=== PATIENT | male | born 1940 | race Caucasian/White ===

== ENCOUNTER → 2018-12-07 | Outpatient (CLI) | payer MEDICARE ==
[~2018-12-07] MED LIST: AMLO5; ATOR20; Mupirocin22 GM; Omeprazole20 M1; RIFA300; TRAZ50; Xalatan2.5 ML
[2018-12-11 13:51] LABS: Stool Occult Bld Immuno 1 Negative (NEGATIVE)
== END | disposition home or self-care (01) ==
LOC: LAB SRC 10:30 → LAB SHORT 10:30 → EDSTATUS 12-05 17:00 → LAB FUT 12-05 17:00
PROVIDERS: Internal Medicine
DX: Z12.11 Encounter for screening for malignant neoplasm of colon (principal)
CPT/HCPCS: G0328

== ENCOUNTER → 2020-02-12 | Outpatient (CLI) | payer MEDICARE ==
[2020-02-12 15:43] LABS: BASOPHILS ABSOLUTE AUTO 0.04 K/mm3 (0.00-0.23); BASOPHILS PERCENT AUTO 0 % (0-2); EOSINOPHILS PERCENT AUTO 2 % (0-6); Hematocrit 46.3 % (37.0-53.0); Hemoglobin 15.3 g/dL (13.5-17.5); IMMATURE GRAN PERCENT AUTO 1 % (0-1); LYMPHOCYTES ABSOLUTE AUTO 2.06 K/mm3 (0.84-5.20); LYMPHOCYTES PERCENT AUTO 19 % (21-46); MONOCYTES ABSOLUTE AUTO 0.81 K/mm3 (0.16-1.47); MONOCYTES PERCENT AUTO 7 % (4-13); Mean Corpuscular HGB 30.7 pg (26.0-34.0); Mean Corpuscular Volume 93 fL (80-100); Mean Platelet Volume 10.5 fL (9.1-12.4); NEUTROPHILS ABSOLUTE AUTO 7.79 K/mm3 (1.96-9.15); NEUTROPHILS PERCENT AUTO 71 % (41-73); Platelet Count 366 K/mm3 (150-400); RDW Coefficient Variation 13.2 % (11.7-14.2); RDW Standard Deviation 44.9 fL (35.1-46.3); Red Blood Cell Count 4.99 M/mm3 (4.30-5.90)
[2020-02-12 15:51] LABS: Alanine Aminotransfer (ALT/SGP 16 U/L (12-78); Albumin, Blood 3.5 g/dL (3.4-5.0); Albumin/Globulin Ratio 0.9 (0.8-1.8); Alk Phos 76 U/L (40-126); Anion Gap 3 mmol/L (6-16); Aspartate Aminotrans (AST/SGOT 15 U/L (12-37); Bilirubin, Total 0.8 mg/dL (0.1-1.0); Blood Urea Nitrogen 16 mg/dL (8-24); Bun/Creatinine Ratio 17.6 (12.0-20.0); CO2, Blood 33 mmol/L (21-32); Calcium, Blood 8.6 mg/dL (8.5-10.1); Chloride, Blood 102 mmol/L (98-108); Creatinine, Blood 0.91 mg/dL (0.60-1.20); Glomerular Filtration Rate >60 (60-); Glucose, Blood 76 mg/dL (70-99); Potassium, Blood 4.4 mmol/L (3.5-5.5); Sodium, Blood 138 mmol/L (136-145); Total Protein, Blood 7.5 g/dL (6.4-8.2)
== END ==
LOC: LAB SHORT 15:31 → LAB EV 15:31
PROVIDERS: Physician Assistant Medical
DX: R41.0 Disorientation, unspecified (principal)
CPT/HCPCS: 36415; 80053; 85025

== ENCOUNTER → 2020-02-13 | Outpatient (CLI) | payer MEDICARE | LOC: LAB EV 13:30 → LAB SHORT 13:30 | DX: R41.0 Disorientation, unspecified (principal) | CPT/HCPCS: 87086 ==

== ENCOUNTER 2022-09-12 10:52 | Observation (INO) | payer MEDICARE ==
[~2022-09-12] VITALS: Ht 172.7 cm; Wt 65.8 kg
[2022-09-12 14:11] LABS: BASOPHILS ABSOLUTE AUTO 0.02 K/mm3 (0.00-0.23); BASOPHILS PERCENT AUTO 0 % (0-2); EOSINOPHILS ABSOLUTE AUTO 0.14 K/mm3 (0.00-0.68); EOSINOPHILS PERCENT AUTO 2 % (0-6); Hemoglobin 14.6 g/dL (13.5-17.5); IMMATURE GRAN ABSOLUTE AUTO 0.05 K/mm3 (0.00-0.10); IMMATURE GRAN PERCENT AUTO 1 % (0-1); LYMPHOCYTES ABSOLUTE AUTO 1.72 K/mm3 (0.84-5.20); LYMPHOCYTES PERCENT AUTO 18 % (21-46); MONOCYTES ABSOLUTE AUTO 0.68 K/mm3 (0.16-1.47); MONOCYTES PERCENT AUTO 7 % (4-13); Mean Corpuscular HGB 30.7 pg (26.0-34.0); Mean Corpuscular Volume 90 fL (80-100); Mean Platelet Volume 10.2 fL (9.1-12.4); NEUTROPHILS ABSOLUTE AUTO 6.78 K/mm3 (1.96-9.15); NEUTROPHILS PERCENT AUTO 72 % (41-73); Platelet Count 232 K/mm3 (150-400); RDW Coefficient Variation 13.3 % (11.7-14.2); RDW Standard Deviation 44.1 fL (35.1-46.3); Red Blood Cell Count 4.76 M/mm3 (4.30-5.90); White Blood Cell Count 9.39 K/mm3 (4.00-11.30)
[2022-09-12 14:41] LABS: Albumin, Blood 3.5 g/dL (3.4-5.0); Bilirubin, Total 1.2 mg/dL (0.1-1.0); Bun/Creatinine Ratio 18.7 (12.0-20.0); Calcium, Blood 8.9 mg/dL (8.5-10.1); Creatinine, Blood 0.96 mg/dL (0.60-1.20); Globulin, Blood 3.6 g/dL (2.2-4.0); Potassium, Blood 4.1 mmol/L (3.5-5.5); Total Protein, Blood 7.1 g/dL (6.4-8.2)
--- NOTE | 2022-09-13 16:19 | NUR ---
OBTAINED PT FROM ER. PT SLEEPING GRASPING AT AIR WITH HANDS. PT ATTEMPTING TO GET OUT OF BED BUT RELAXES ONCE ASKED A FEW TIMES. NS INFUSING. ON RA. BLACKBERRY SCRATCHS ON LEGS, OLD WOUNDS. SIDE RAILS UP X3 FOR SAFETY, BED ALARM ON, AND CALL LIGHT IN REACH.
--- NOTE | 2022-09-14 03:15 | NUR ---
CASSEROLE PREPARER SUMMARY BP ELEVATED. ASYMPTOMATIC. IVF INFUSING ORDERED, TOLERATED MEDS CRUSHED IN APPLESAUCE. TENISHA AND [address], CHECKS WNL. CONTINUES TO BE DANGER AND HIGH FALL RISK. DOES NOT REDIRECT, EASILY AGITATED. INCONT OF URINE X 1. LINEN CHANGED. 1:1 AT BEDSIDE. CALL LIGHT IN REACH. WILL CONTINUE TO MONITOR.
--- NOTE | 2022-09-14 16:56 | NUR ---
SHIFT SUMMARY- PT VSS. PT AWARE OF ONLY SELF. PT SITS UP IN BED AND LAYS DOWN, GRASPING AT OJBECTS IN AIR. MUMBLING EXCESSIVELY, STATING HE "NEEDS TO GET OUTTA HERE" MEDICATED PER DR ORDER, SEE EMAR. 1 UNMEASURED VOID. IV LEAKING, PULLED. PT HAS ISSUES EATING. TONGUES FOOD ABNORMALLY. PT ATE SOME BITES THEN WOUND LOSE INTEREST. NO C/O OF PAIN, NO WINCHING NOTICED. CALL LIGHT IN REACH, BED ALARN, SIDE AILS UP FOR SAFETY.
--- NOTE | 2022-09-15 04:17 | NUR ---
SHIFT SUMMARY PT AOX1, EASILY AGITATED, CONFUSED AND DISORIENTED. PT TRIES TO COMMUNICATE BUT SPEECH IS GARBLED. PT IN 4 POINT RESTRAINTS FOR SAFETY, HIGH FALL RISK. 0.45 NS INFUSING AT 150 ORDERED. PT NEEDED TO BE CONVINCED TO TAKE EVENING MEDS CRUSHED IN APPLESAUCE BUT HE EVENTUALLY DID. VSS, NO ACUTE EVENTS.
--- NOTE | 2022-09-15 08:14 | NUR ---
pt laying in bed with eyes closed, snoring, is confused when wakes, lungs are clear dim in bases, resp even and unlabored, no cough noted, on r/a, hrr, no edema noted, ppp+1, cap refill <3sec, vs stable, afebrile, iv to lac, site is clear and patent, bt x4, abd flat soft nontender, voids without diff, skin has many scratches to ext secondary to walking through blackberries, incont, briefs in place, matiffany, is bedrest at this time, jasbir, call light in reach.
--- NOTE | 2022-09-15 16:01 | NUR ---
pt is continuing to lay in bed quietly, fluids infusing as ordered, his eyes are open this afternoon, but not responding to questions. call light in reach.
--- NOTE | 2022-09-15 18:38 | NUR ---
pt laying in bed sleeping most of the day, did have his eyes open a few times and tried to speak with him, his speech was garbled, no further changes this shift, call light in reach.
--- NOTE | 2022-09-16 02:34 | NUR ---
DISORIENTED WITH GARBLED SPEECH. AGITATED AND IMPULSIVE; NEAR CONSTANT ATTEMPTS TO EXIT BED AT SHIFT START. 4 PT SOFT RESTRAINTS AND TENISHA VEST IN PLACE AT THIS TIME. NO APPARENT NON-VERBAL S/S PAIN PRESENT. PRN ZYPREXA GIVEN FOR AGITATION /ANXIETY; EFFECTIVE (SLEEPING /SNORING SINCE ADMIN). INC AND IN BRIEFS. 2X ASSIST TO REPOSITION; DONE APPROX Q2 HRS. BED ALARM SET, CALL LIGHT IN REACH, FREQUENT ROUNDING /NEEDS ANTICIPATED.
--- NOTE | 2022-09-17 02:15 | NUR ---
DISORIENTED AND INTERMITTENTLY AGITATED THROUGHOUT SHIFT. MORE COOPERATIVE WITH INC CARE COMPARED TO LAST CUSTOMER ACCOUNT ADMINISTRATOR. [address] L BUTTOCK FOAM DRESSING CDI. HTN (176/99); PRN HYDRALAZINE ORDER OBTAINED. REFUSED 2100 SEROQUEL; THIS RN ATTEMPTED ADMIN SEVERAL TIMES WITH DIFFERENT TACTICS. NO NON-VERBAL S/S PAIN PRESENT AT THIS TIME. BED ALARM, CALL LIGHT IN REACH, NEEDS ANTICIPATED /FREQUENT ROUNDING
--- NOTE | 2022-09-17 19:17 | NUR ---
PATIENT IS ALERT AND ORIENTED TO SELF. HE DID NOT EAT THIS SHIFT BECAUSE HE WAS EITHER SLEEPING OR TOO AGITATED TO EAT. PATIENT IS IN RESTRAINTS. DR. GREENBERG SPOKE WITH THE PATIENT'S DAUGHTER, ANA MARIA, THIS SHIFT. PATIENT'S DAUGHTER IS HOPING TO TAKE HIM HOME. REPORT GIVEN TO ONCOMING RN
--- NOTE | 2022-09-18 03:13 | NUR ---
NIGHTSHIFT SUMMARY Patient resting comfortably during night, occasionally awakes and attempts to pull off brief, and or move down bed. Offered food/fluids patient declined. Soft restraints applied to UE/LE. Vitals stable. Will continue to monitor.
--- NOTE | 2022-09-18 15:56 | NUR ---
PLACED PHONE CALL TO DR. RICHARDSON - DAUGHTER ANA MRAIA IS AT PT'S BEDSIDE. SHE IS REQUESTING A MEDICATION TO "CALM PATIENT." THERE ARE NO OVERT SIGNS OF PAIN OR AGGITATION OR DISCOMFORT. DR. RICHARDSON REQUESTED A PALLIATIVE CARE CONSULT SO THAT HE CAN FOLLOW THEIR MEDICATION MANAGEMENT RECOMMENDATIONS.
--- NOTE | 2022-09-18 17:07 | NUR ---
New referral received for medication management. Review of EMR and case conferenced with pt's bedside RN. Pt has advanced dementia with worsening behaviors at home, agitation, violence increasing over past month or so per family cg, Shakira. Pt currently has periods of agitation and wandering, removing restraints. Nuris has verbalized that she is concerned about over sedation with medications previously. Today she requests that we give him something to "calm" him. RN to explain to nuris, when she returns, that most medications given to treat agitation or pain will also make pt more sleepy and that we will not administer those medications unless assessment shows that he needs them. Report called to Dr with recommendation for starting dose of ativan 0.5-1.0 mg IV q4 prn and tylenol for any discomfort noted. Pt has not had anything ordered for pain during this admission and nonverbal indicators of pain are not noted other than agitation/restlessness that is normal for him at his current baseline. Plan for [facility] to reassess in am and follow up with family for goals of care. MD notes of the weekend indicate nuris interested in comfort care but RN reports she may have changed her mind yesterday per nursing report. CM may need to address placement options also if nuris is unable to cont care at home due to pt's behaviours with dementia.
--- NOTE | 2022-09-18 20:03 | NUR ---
DAUGHTER, ANA MARIA, AT BEDSIDE THROUGH OUT MOST OF THE SHIFT. DTR STATES THAT SHE WOULD LIKE PT MEDICATED BECAUSE HE "DOESN'T LOOK COMFORTABLE." NO SIGNS OF AIR HUNGER OR GRIMACING/MOANING. PT IS WRIGGLY, AND VERY MOBILE IN BED. HE BECOMES COMBATIVE WITH PERSONAL CARE. RN PLACED PALLIATIVE CARE CONSULT. ADMINISTERED PRN IV ATIVAN X 1. BED IN LOWEST POSITION, ROOM AIR, FREQUENT MONITORING.
--- NOTE | 2022-09-19 03:18 | NUR ---
Patient in restraints this shift, for patient/staff safety. Patient unable to follow directions, resistive with cares, attempting to get out of bed when restraints removed. Patient refused PO intake, gave HS Seroquel crush/applesauce. Patient took bite, but applesauce spilling from mouth. Patient restless during night, resistant during cares. 0245, patient noted to still, absent respirations/bilateral palpable pulses, pupillary response. 2nd RN assessed patient. Notified MD that patient DNR/comfort, at 0250, pronouncement documented. Called & left voicemail for daughter. Waiting to hear back from family, and familys choice for home.
== END 2022-09-19 02:50 ==
LOC: ER 10:52 → ERHOLD 10:53 → MEDS 10:53
PROVIDERS: Emergency Medicine; ADMIT Family Medicine
DX: F03.C11 Unspecified dementia, severe, with agitation (principal); Z66 Do not resuscitate
CPT/HCPCS: 70450; 80053; 85025; 96372; 96375; 99285-25; A9270; G0378; J0360; J1200; J1630; J2060